=== PATIENT | female | born 1950 | race Caucasian/White ===

== ENCOUNTER 2016-05-11 13:06 | Observation (INO) | payer OTHER ==
--- NOTE | ~2016-05-11 | DS ---
Unit #: [id number] #: [id number] Patient: NIGHAT ABRAHAM [id number] [address] [place], [place] [address] [id number] I MR#: [id number] NAME: NIGHAT ABRAHAM ROOM: 314 Age: 65 Sex: F Admission Date: 05/11/2016 : 1950 Discharge Date: Attending Physician: Marco A Osorio M.D. Primary Care Physician: Eliseo Ross M.D. DISCHARGE SUMMARY ADMITTING DIAGNOSIS Syncope. FURTHER DIAGNOSES 1. Sepsis. 2. Influenzae A pneumonia. 3. Urinary tract infection with cultures negative. 4. Chronic inflammatory demyelinating polyneuropathy. 5. Abnormal echocardiogram with an ejection fraction of 40% to 45% and mild hypokinetic motion of the anterolateral wall. 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 HISTORY OF PRESENTING ILLNESS The patient is a 65-year-old lady with a past medical history of chronic inflammatory demyelinating neuropathy who was on immunoglobulins and currently on azathioprine, who presented to the hospital with a chief complaint of syncope. She complains of cough with production of dark sputum. She also complains of having had diarrhea and burning sensation passing urine. In the hospital course on initial evaluation, she was found to have influenzae A. She was started on Tamiflu. She was also noted to have a urinary tract infection on the urinalysis, started on antimicrobials. Her urine culture came back negative, possibly as she was already receiving antimicrobials. She is doing clinically better. She got an echo done. Echo showed an abnormal wall motion abnormality. Dr. Pandya was consulted. Dr. Pandya recommended an ischemic workup to be done as an outpatient. He recommended that she needs to a Lexiscan Cardiolite stress test but he wants to do it after she recovered from her influenzae. He also recommended an outpatient sleep study. I spoke with Dr. Vargas and he is trying to schedule her for a sleep study. She is doing clinically better. She will be discharged home. On the day of the discharge, her physical examination: ITAL SIGNS - temperature 97.5, pulse rate 70, respiration 18, blood pressure 108/60. The patient is alert, oriented x3, lying in the bed, in no acute distress. HEENT - normocephalic, atraumatic. No icterus. PERRLA. Extraocular muscles intact. NECK is supple. No JVD. HEART - S1, S2. Regular rate and rhythm. CHEST - bilateral equal air entry. Minimal rhonchi. ABDOMEN - soft, nontender. EXTREMITIES - no edema. Normal pulses. Unit #: [id number] #: [id number] Patient: NIGHAT ABRAHAM DISCHARGE MEDICATIONS Include: 1. Tamiflu 75 mg p.o. twice a day for three more days. 2. Omnicef 300 mg p.o. b.i.d. 3. Zofran 4 mg p.o. q.6 hours p.r.n. nausea and vomiting. She will be continuing the rest of the medications includin. Imuran 50 mg p.o. daily. 5. Tessalon 200 mg p.o. twice a day. 6. Norvasc 10 mg daily. 7. Omeprazole 40 mg daily. She was instructed to follow with her primary care in one to two weeks along with Dr. Pandya in two weeks for a Lexiscan Cardiolite stress test and with Dr. Vargas for an outpatient sleep study. Total time spent in her care - 35 minutes. Dictated by... Carie Moffett TD: 05/14/2016 13:42 JOB #: [id number] DISCHARGE SUMMARY X X DISCHARGE SUMMARY
--- NOTE | ~2016-05-11 | EKG ---
PATIENT: NIGHAT ABRAHAM UNIT #: [id number] Ventricular Rate: 73 BPM Atrial Rate: 73 BPM P-R Interval: 134 ms QRS Duration: 80 ms Q-T Interval: 398 ms QTC Calculation(Bezet): 438 ms P Windom: 44 degrees Calculated R Windom: 12 degrees Calculated T Windom: 23 degrees Diagnosis Line: Sinus rhythm with occasional Premature ventricular Diagnosis Line: complexes Diagnosis Line: Otherwise normal ECG Diagnosis Line: When compared with ECG of 11-MAY-2016 12:46, Diagnosis Line: Premature ventricular complexes are now Present Diagnosis Line: Confirmed by MARGIE LION MD ([id number]) on Diagnosis Line: 05/15/2016 8:01:28 AM INTERPRETING MD: AMISHA GEIGER
--- NOTE | ~2016-05-11 | EKG ---
PATIENT: NIGHAT ABRAHAM UNIT #: [id number] Ventricular Rate: 87 BPM Atrial Rate: 87 BPM P-R Interval: 118 ms QRS Duration: 82 ms Q-T Interval: 362 ms QTC Calculation(Bezet): 435 ms P Rio: -8 degrees Calculated R Rio: 28 degrees Calculated T Rio: 35 degrees Diagnosis Line: Normal sinus rhythm Diagnosis Line: Normal ECG Diagnosis Line: No previous ECGs available Diagnosis Line: Confirmed by INA HENDERSON MD ([id number]) on 05/12/2016 Diagnosis Line: 12:05:29 PM INTERPRETING MD: BEATRIZ GEIGER
--- NOTE | ~2016-05-11 | CR72 ---
[facility] A Service of [facility] & [facility] RADIOLOGY TEXT RESULTS PATIENT: NIGHAT ABRAHAM LOCATION: A 314-01 : [birth year] UNIT #: [id number] AGE: [address]: Marco A Osorio MD SEX: F ORDER DR: [id number] [facility] [address] [place], [place] [address] [id number] E MR#: [id number] Acc #: [id number] NAME: NIGHAT ABRAHAM : 1950 SEX: F STUDY DATE/TIME: 05/11/2016 12:44 UNIT: [facility] ROOM: STUDY DESCRIPTION: CR Chest Single View Portable Attending Physician: Bernice Morley M.D. Ordering Physician: Bernice Morley M.D. Primary Care Physician: Eliseo Ross M.D. MEDICAL IMAGING REPORT This report is preliminary unless electronic signature is present EXAM Portable chest. HISTORY 65-year-old female; cough and bronchitis for 2 weeks. COMPARISON STUDIES 01/02/2015 FINDINGS There is linear scarring or atelectasis in the left base. There is no consolidation. The heart size is normal for technique. A left chest port is in place. IMPRESSION No active disease. Dictated by... Memo Jenkins M.D. THIS IS AN ELECTRONICALLY VERIFIED REPORT Memo Jenkins M.D. at 05/15/2016 8:37 AM RENEA/anita TD: 05/11/2016 17:47 JOB #: [id number] MEDICAL IMAGING REPORT COPY
--- NOTE | ~2016-05-11 | CO ---
Unit #: [id number] #: [id number] Patient: NIGHAT ABRAHAM [id number] [facility] [place] [facility]. [place], [place] [address] [id number] I MR#: [id number] NAME: NIGHAT ABRAHAM ROOM: 314 Age: 65 Sex: F Admission Date: 05/11/2016 : 1950 Attending Physician: Marco A Osorio M.D. Primary Care Physician: Eliseo Ross M.D. CONSULTATION REPORT REASON FOR CONSULTATION REQUEST Abnormal echo. HISTORY OF PRESENT ILLNESS Ms. Nighat Abraham is a pleasant 65-year-old female, seen in room 314 at [facility]. She was admitted after an episode of syncope, and she has a history of chronic inflammatory demyelinating polyneuropathy, on IV immunoglobulins until 2 months ago. Her echo was done for evaluation of syncope, and the echo showed ejection fraction of 45% to 50%, and mild anterior and anteroseptal hypokinesis. Otherwise, valves were fine, and the wall motion was fine. The syncopal event occurred after a day of feeling very very poorly. She had a cough come with copious amounts of sputum. She went to the restroom, with dysuria, and dark black stools, and when she came out of the restroom to the living room, she felt nauseous, mild diaphoresis, and then became syncopal. She denies any palpitations or chest pain, or any tachyarrhythmias. She awoke several minutes later, with no residual, and there was no seizure activity noted. Upon presentation to [facility] Emergency Room, her ECG was normal, QT interval was 435 msec. She has had no previous syncope or presyncope. She has no PND, orthopnea, edema, or claudication. She states she sleeps extremely poorly, and awakens frequently. She has a hard time going asleep, awakens frequently, and when she does arise in the morning, she feels like she has not slept at all. PAST MEDICAL HISTORY 1. Hypertension. 2. GERD. 3. Restless legs. 4. Chronic fatigue. 5. Chronic inflammatory demyelinating polyneuropathy. ALLERGIES None. PAST SURGICAL HISTORY 1. Port placement for immunoglobulins. 2. Left elbow surgery. HOME MEDICATIONS Amlodipine 10 mg daily, omeprazole 40 mg daily, Imuran 50 mg daily, Unit #: [id number] #: [id number] Patient: NIGHAT ABRAHAM p.r.n., Angleika p.r.n. SOCIAL HISTORY Denies smoking, alcohol, or illicit drugs, currently on disability. REVIEW OF SYSTEMS As per history of present illness. Otherwise, as stated below. GENERAL: No recent fever or chills. No recent weight change. ENDOCRINE: Negative for thyroid disease. HEENT: No auditory or visual disturbances. GASTROINTESTINAL: No melena, no hematochezia. RESPIRATORY: She notes extreme shortness of breath doing daily activities. She has been told not to exercise much, because of the CIDP. CARDIOVASCULAR: Vide supra. GENITOURINARY: No dysuria. No back pain suggestive of nephrolithiasis. NEUROLOGIC: No seizure disorder, recent CVA, or TIA. PSYCHOLOGICAL: No depression. PHYSICAL EXAMINATION GENERAL: Pleasant, alert, somewhat frustrated, in no acute distress. VITAL SIGNS: Blood pressure 138/84, heart rate is 100 and regular, respiratory rate is 16. SKIN: Warm and dry. No xanthelasma. MUSCULOSKELETAL: No missing digits. Moves easily for evaluation. NEUROLOGICAL: Appropriate mood and affect. Alert and oriented x3. HEENT: Pupils equal, round and reactive. No oral cyanosis. No icterus. NECK: Carotids clear to auscultation with no carotid bruits. Normal carotid upstroke bilaterally. Thyroid is normal in size and texture without masses or tenderness. CHEST: Clear to auscultation with no rales or wheezes. Good effort. CARDIAC: Normal point of maximum impulse. Normal S1 and S2. No S3, S4 or rub. ABDOMEN: No hepatosplenomegaly, masses or tenderness. Normal bowel sounds. No abdominal bruits heard. EXTREMITIES: No clubbing, cyanosis or edema. Excellent posterior tibial and dorsalis pedis pulses. DIAGNOSTIC STUDIES LABORATORY RESULTS: Creatinine is 0.6, potassium 3.8. Total protein 5.8, albumin 2.9. Liver enzymes are normal. TSH was not recently checked. White blood count 6.2, hemoglobin 10.8, platelet count 411,000. Urinalysis shows 2+ leukocyte esterase, and positive nitrites, as well as 2+ protein. CARDIOVASCULAR STUDIES: ECG as above. IMPRESSION 1. Abnormal echo with anteroseptal hypokinesis and EF of 45% to 50%. 2. Syncope: I think this was vagal. 3. High likelihood of sleep apnea. 4. Hypertension. 5. Severe dyspnea on exertion with recent bronchitis, and urinary tract infection. DISCUSSION 1. Complex situation. In terms of the cardiac situation, I would recommend outpatient Lexiscan stress. Currently, she is going through Unit #: [id number] #: [id number] Patient: NIGHAT ABRAHAM bronchitis and UTI treatment. I think we should wait until she improves. 2. I think there is a very high likelihood that she has sleep apnea, contributing to the chronic fatigue. She gives a classic history for this. 3. In terms of dyspnea on exertion, I think this is deconditioning. Whatever, Neurology will let her do in terms of exercise from a cardiac perspective she could do. 4. I think the syncope was a vagal event. I would not do any further workup at this time. She had both bronchitis and UTI, and was very anxious about her situation. I do not think any further workup is necessary at this point. RECOMMENDATIONS 1. Overnight oximetry. 2. Check lipids, TSH, hemoglobin A1c. 3. Check troponin. 4. Outpatient sleep study. 5. We will continue to follow with you. Thank you very much for this consultation. She can be discharged whenever it is appropriate from a primary care standpoint. Dictated by... Carie Hernandez/bucky TD: 05/13/2016 15:22 JOB #: [id number] CONSULTATION REPORT X Nikolai Pandya MD X CONSULTATION REPORT
--- NOTE | ~2016-05-11 | HP ---
Unit #: [id number] #: [id number] Patient: NIGHAT ABRAHAM [id number] [address] [place], [place] [address] [id number] E MR#: [id number] NAME: NIGHAT ABRAHAM ROOM: Age: 65 Sex: F Admission Date: 05/11/2016 : 1950 Attending Physician: Bernice Morley M.D. Primary Care Physician: Eliseo Ross M.D. HISTORY AND PHYSICAL CHIEF COMPLAINT "I passed out." HISTORY OF PRESENT ILLNESS The patient is a 65-year-old lady with a past medical history of chronic inflammatory demyelinating polyneuropathy who was on IV immunoglobulins until two months ago, history of hypertension, who presented to the emergency room through her family, mainly because of passing out at home. Apparently, she was not feeling well for the last one week. Complains of cough with production of copious amounts of sputum. She was told she has bronchitis and given a prescription of antibiotics which she does not recollect. She was taking it and she was not feeling well. This afternoon, she went to the bathroom. She was having a burning sensation passing urine and complains of passing dark black stools and later when she came out of the restroom, she felt lightheaded and passed out for a couple of minutes and later she got into her senses and the family brought her to the emergency room. Denies any chest pain. Denies any palpitations. Denies having any similar episodes in the past. She mentions she did not receive her flu vaccine as she CIDP and was not supposed to receive. She mentions that she follows with Dr. Noel as an outpatient for her CIDP. In the emergency room, she was noted to have a urinary tract infection, positive for influenza, and she is getting admitted for further management. PAST MEDICAL HISTORY 1. Hypertension. 2. History of GERD. 3. Restless leg syndrome. 4. Chronic fatigue syndrome. 5. Chronic inflammatory demyelinating polyneuropathy. ALLERGIES No known drug allergies. PAST SURGICAL HISTORY 1. Port placement. 2. Left elbow fracture surgery. HOME MEDICATIONS She does not recollect, will try to get a list. SOCIAL HISTORY Denies any smoking, alcohol, illicit drugs. Currently on disability. Unit #: [id number] #: [id number] Patient: NIGHAT ABRAHAM FAMILY HISTORY Noncontributory to the current admission. REVIEW OF SYSTEMS Complete review of systems done and negative except for what is mentioned in the HPI. PHYSICAL EXAMINATION VITAL SIGNS: Temperature 97.7, pulse rate 101, respiratory rate 18, blood pressure 138/84. GENERAL: The patient is obese, alert, oriented x3. Lying in the bed in no acute distress. HEENT: Normocephalic and atraumatic. No icterus. PERRLA. Extraocular muscles intact. NECK: Supple. No JVD. HEART: S1, S2. Tachycardia. CHEST: Bilateral equal air entry. Bilateral rhonchi. ABDOMEN: Obese, soft, nontender. EXTREMITIES: No edema. Normal peripheral pulses. DIAGNOSTIC STUDIES LABORATORY: Glucose 109, BUN 15, creatinine 0.7, sodium 141, potassium 3.6, chloride 107, bicarbonate 26. AST 17, ALT 10. WBC 6.2, hemoglobin 12, platelets 469,000. UA shows nitrite positive, 2+ leukocyte esterase. Her influenza swab is positive. ASSESSMENT AND PLAN 1. Syncope, possibly secondary to diarrhea and also due to influenza at this point versus any cardiac etiology. Will admit her. Will start her on IV fluids. Check a 2D echo with Doppler and monitor. 2. Sepsis, secondary due to influenza pneumonia and urinary tract infection. (1) regarding influenza, will keep her in droplet isolation. Will start her on Tamiflu, p.r.n. Tylenol and monitor. 3. Urinary tract infection: Will check urine cultures. Will blood cultures. Will start her on Rocephin. Will review the cultures and de-escalate. 4. Diarrhea: She mentions she was on antimicrobials recently for bronchitis. Will check a stool for Clostridium difficile. Will also check stool for occult blood. Will empirically add Flagyl and monitor. 5. Syncope: Will check a 2D echo with Doppler, serial cardiac enzymes, and monitor. 6. Chronic inflammatory demyelinating polyneuropathy: Clinically stable at this point. No neurological deficits. 7. Deep venous thrombosis precautions: Bilateral sequential compression devices. 8. Further recommendations per hospital course. Dictated by Carie Moffett TD: 05/11/2016 17:15 JOB #: [id number] Unit #: [id number] #: [id number] Patient: NIGHAT ABRAHAM HISTORY AND PHYSICAL X X HISTORY AND PHYSICAL
[~2016-05-11 13:06] MED LIST: ALPRAZOLAM0.5 MG; ALPRAZOLAM0.5 MG PO; AMBIEN PO; AMLODIPINE BESY10 MG PO; AMLODIPINE-BEN1 EACH PO; AZATHIOPRINE50 M1 PO; CELEXA20 MG PO; CLONIDINE TOP; COLACE PO; GAMUNEX INJ; IMURAN50 MG PO; LEVAQUIN PO; LYRICA PO; MEDROL DOSEPAK4 MG PO; MIRAPEX PO; NORVASC PO; NORVASC10 MG PO; OMEPRAZOLE40 M1 PO; PROVIGIL100 MG PO; SOLU-MEDROL1000 MG IV; TEGRETOL PO; TYLENOL325 M1 PO; ZOFRAN ODT4 MG PO
[2016-05-11 13:17] LABS: URINE SOURCE CLEAN CATCH
[2016-05-11 13:21] LABS: POC - CKMB <1.0 ng/mL (0.0-7.9); POC - TROPONIN <0.05 ng/mL (<=0.05)
[2016-05-11 13:23] LABS: URINE APPEARANCE TURBID; URINE BLOOD 3+ (NEG); URINE COLOR RED; URINE GLUCOSE NEG (NEG); URINE KETONE NEG (NEG); URINE LEUKOCYTE ESTERASE 2+ (NEG); URINE NITRATE POS (NEG); URINE PROTEIN 2+ (NEG); URINE SPECIFIC GRAVITY 1.028 (1.003-1.035); URINE UROBILINOGEN 0.2 MG/DL (NEG)
[2016-05-11 13:26] LABS: CULTURE INDICATED? YES; URBCS1 AUWI INNUM /[HPF] (0-2)
[2016-05-11 13:50] LABS: PARTIAL THROMBOPLASTIN TIME 92.4 SECONDS (23.5-31.3); PROTHROMBIN TIME (PATIENT) 10.8 SECONDS (9.6-11.5)
[2016-05-11 13:54] LABS: URINE BILIRUBIN NEG (NEG)
[2016-05-11 13:57] LABS: ALBUMIN SERUM 3.4 g/dL (3.5-5.0); ALKALINE PHOSPHATASE 65 U/L (32-92); ALT (SGPT) 10 U/L (10-40); AST (SGOT) 17 U/L (10-42); BILIRUBIN, DIRECT 0.1 mg/dL (0.0-0.2); BILIRUBIN,INDIRECT 0.5 mg/dL (0.0-0.9); BILIRUBIN,TOTAL 0.6 mg/dL (0.2-2.0); BLOOD UREA NITROGEN 15 mg/dL (9-23); BUN/CREATININE RATIO 21.42; CALCIUM SERUM 8.8 mg/dL (8.4-10.2); CARBON DIOXIDE 26 mmol/L (22-31); CHLORIDE 107 mmol/L (100-111); CREATININE SERUM 0.7 mg/dL (0.6-1.4); GLOM FILT RATE Estimated ABOVE60 mL/min (>60); GLUCOSE FASTING 109 mg/dL (70-110); POTASSIUM 3.6 mmol/L (3.5-5.1); SODIUM 141 mmol/L (135-145)
[2016-05-11 13:58] LABS: URINE SQUAMOUS EPITHELIAL CELL FEW /[HPF]
[2016-05-11 13:59] LABS: BASOPHIL# 0.1 X10e3 (0-0.3); BASOPHIL% 1.4 % (0-2.5); DIFF IND NO; EOSINOPHIL# 0.1 X10e3 (0-0.7); HEMATOCRIT 35.5 % (35.0-45.0); LYMPHOCYTE# 0.4 X10e3 (1.0-3.5); LYMPHOCYTE% 6.4 % (17.0-45.0); MEAN CELL VOLUME 89.2 FL (83-96); MEAN CORPUSCULAR HGB CONC 33.7 g/dL (30-36); MEAN PLATELET VOLUME 6.8 FL (6.5-11.5); MONOCYTE# 0.4 X10e3 (0-1.0); MONOCYTE% 6.5 % (3.0-12.0); NEUTROPHIL# 5.2 X10e3 (1.5-7.1); NEUTROPHIL% 83.7 % (40-75); PLATELET COUNT 469 X10e3 (140-420); RED BLOOD COUNT 3.98 X10e (3.90-5.30); WHITE BLOOD COUNT 6.2 X10e3 (4.0-10.5)
[2016-05-11 13:59] LABS: URINE BACTERIA AUWI 1+ (NEGATIVE)
[2016-05-11 15:48] LABS: INFLUENZA A POS (NEG); INFLUENZA B NEG (NEG)
[2016-05-11 16:37] LABS: POC - CKMB <1.0 ng/mL (0.0-7.9); POC - TROPONIN <0.05 ng/mL (<=0.05)
[2016-05-11] MEDS ORDERED: IMURAN50 MG PO (17:37)
[2016-05-11] MEDS ORDERED: OMEPRAZOLE40 M1 PO (17:37)
[2016-05-11] MEDS ORDERED: AMLODIPINE BESY10 MG PO (17:37)
[2016-05-11] MEDS ORDERED: TESSALON PERLE100 M1 PO (17:38)
[2016-05-11] MEDS ORDERED: AUGMENTIN875 M1 PO (17:38)
[2016-05-11 23:23] LABS: CK TOTAL 46 IU/L (26-140)
[2016-05-12 04:31] LABS: BASOPHIL# 0.1 X10e3 (0-0.3); BASOPHIL% 1.2 % (0-2.5); DIFF IND NO; EOSINOPHIL# 0.3 X10e3 (0-0.7); EOSINOPHIL% 5.4 % (0.0-7.0); HEMATOCRIT 31.9 % (35.0-45.0); HEMOGLOBIN 10.7 gm/dL (12.0-16.0); LYMPHOCYTE# 0.8 X10e3 (1.0-3.5); LYMPHOCYTE% 12.5 % (17.0-45.0); MEAN CELL VOLUME 91.3 FL (83-96); MEAN CORPUSCULAR HEMOGLOBIN 30.6 PG (28-34); MEAN CORPUSCULAR HGB CONC 33.6 g/dL (30-36); MEAN PLATELET VOLUME 6.6 FL (6.5-11.5); MONOCYTE# 0.4 X10e3 (0-1.0); MONOCYTE% 7.2 % (3.0-12.0); NEUTROPHIL# 4.4 X10e3 (1.5-7.1); NEUTROPHIL% 73.7 % (40-75); PLATELET COUNT 410 X10e3 (140-420); RED BLOOD COUNT 3.49 X10e (3.90-5.30); RED CELL DISTRIBUTION WIDTH 15.2 % (11.0-15.5)
[2016-05-12 04:51] LABS: CK TOTAL 52 IU/L (26-140)
[2016-05-12 04:55] LABS: ALBUMIN SERUM 2.9 g/dL (3.5-5.0); ALKALINE PHOSPHATASE 61 U/L (32-92); ALT (SGPT) 9 U/L (10-40); AST (SGOT) 15 U/L (10-42); BILIRUBIN,TOTAL 0.5 mg/dL (0.2-2.0); BLOOD UREA NITROGEN 9 mg/dL (9-23); BUN/CREATININE RATIO 12.85; CALCIUM SERUM 8.5 mg/dL (8.4-10.2); CARBON DIOXIDE 25 mmol/L (22-31); CHLORIDE 108 mmol/L (100-111); CREATININE SERUM 0.7 mg/dL (0.6-1.4); GLOM FILT RATE Estimated ABOVE60 mL/min (>60); GLUCOSE FASTING 103 mg/dL (70-110); POTASSIUM 3.6 mmol/L (3.5-5.1); PROTEIN TOTAL SERUM 5.8 g/dL (6.0-8.3); SODIUM 138 mmol/L (135-145)
[2016-05-13 06:27] LABS: HEMATOCRIT 30.3 % (35.0-45.0); HEMOGLOBIN 10.8 gm/dL (12.0-16.0); MEAN CELL VOLUME 97.9 FL (83-96); MEAN CORPUSCULAR HEMOGLOBIN 34.8 PG (28-34); MEAN CORPUSCULAR HGB CONC 35.5 g/dL (30-36); MEAN PLATELET VOLUME 6.7 FL (6.5-11.5); RED BLOOD COUNT 3.09 X10e (3.90-5.30); RED CELL DISTRIBUTION WIDTH 14.9 % (11.0-15.5); WHITE BLOOD COUNT 6.2 X10e3 (4.0-10.5)
[2016-05-13 07:54] LABS: BLOOD UREA NITROGEN 7 mg/dL (9-23); BUN/CREATININE RATIO 11.66; CALCIUM SERUM 8.3 mg/dL (8.4-10.2); CARBON DIOXIDE 26 mmol/L (22-31); CHLORIDE 109 mmol/L (100-111); CREATININE SERUM 0.6 mg/dL (0.6-1.4); GLOM FILT RATE Estimated ABOVE60 mL/min (>60); GLUCOSE FASTING 101 mg/dL (70-110); POTASSIUM 3.8 mmol/L (3.5-5.1); SODIUM 139 mmol/L (135-145)
[2016-05-14 06:01] LABS: HEMATOCRIT 31.5 % (35.0-45.0); HEMOGLOBIN 10.6 gm/dL (12.0-16.0); MEAN CORPUSCULAR HEMOGLOBIN 30.9 PG (28-34); MEAN CORPUSCULAR HGB CONC 33.7 g/dL (30-36); RED BLOOD COUNT 3.44 X10e (3.90-5.30); RED CELL DISTRIBUTION WIDTH 15.3 % (11.0-15.5); WHITE BLOOD COUNT 6.8 X10e3 (4.0-10.5)
[2016-05-14 06:05] LABS: MEAN CELL VOLUME 91.5 FL (83-96)
[2016-05-14 06:44] LABS: BLOOD UREA NITROGEN 10 mg/dL (9-23); BUN/CREATININE RATIO 16.66; CALCIUM SERUM 8.5 mg/dL (8.4-10.2); CARBON DIOXIDE 28 mmol/L (22-31); CHLORIDE 106 mmol/L (100-111); CREATININE SERUM 0.6 mg/dL (0.6-1.4); GLOM FILT RATE Estimated ABOVE60 mL/min (>60); GLUCOSE FASTING 98 mg/dL (70-110); POTASSIUM 3.9 mmol/L (3.5-5.1); SODIUM 140 mmol/L (135-145)
[2016-05-14 06:53] LABS: CHOLESTEROL 101 mg/dL (0-200); HDL CHOLESTEROL 48 mg/dL (35-95); LDL CHOLESTEROL 46 mg/dL (-130); LDL/HDL RATIO 1 RATIO (0-4); TRIGLYCERIDES 36 mg/dL (10-160)
[2016-05-15] MEDS ORDERED: TAMIFLU75 M1 PO (09:21)
[2016-05-15] MEDS ORDERED: OMNICEF300 MG PO (09:22)
[2016-05-15] MEDS ORDERED: ZOFRAN PO (09:22)
== END 2016-05-15 10:50 | DRG 871 ==
LOC: CED 13:06 → CEDOF 16:30 → C3A PCU 19:56
PROVIDERS: Emergency Medicine; Internal Medicine
DX: A41.89 Other specified sepsis (principal); J10.01 Influenza due to other identified influenza virus with the same other identified influenza virus pneumonia; R55 Syncope and collapse; N39.0 Urinary tract infection, site not specified; G61.81 Chronic inflammatory demyelinating polyneuritis; I08.8 Other rheumatic multiple valve diseases; I10 Essential (primary) hypertension; R19.7 Diarrhea, unspecified; R53.82 Chronic fatigue, unspecified; K21.9 Gastro-esophageal reflux disease without esophagitis; R93.1 Abnormal findings on diagnostic imaging of heart and coronary circulation
CPT/HCPCS: 36415; 71010; 80048; 80053; 80061; 80076; 81003; 82550; 82553; 82947; 83036; 83605; 83880; 84443; 84484; 85025; 85027; 85610; 85730; 87040; 87070; 87086; 87205; 87493; 87804; 93005; 93306; 94760; 96361; 96365; 96366; 96375; 96376; 99285; G0378; J0696; J1642; J2405

== ENCOUNTER → 2016-06-13 | Outpatient (CLI) | payer OTHER ==
[~2016-06-13] MED LIST changes: +AUGMENTIN875 M1 PO; +OMNICEF300 MG PO; +TAMIFLU75 M1 PO; +TESSALON PERLE100 M1 PO; +ZOFRAN PO
--- NOTE | ~2016-06-13 | CT57 ---
[facility] A Service of [facility] & [facility] RADIOLOGY TEXT RESULTS PATIENT: NIGHAT ABRAHAM LOCATION: [facility] : 52 UNIT #: [id number] AGE: [address]: Mary Sarmiento SEX: F ORDER DR: [id number] [facility] [address] [place], [place] [address] [id number] O MR#: [id number] Acc #: [id number] NAME: NIGHAT ABRAHAM : 1950 SEX: F STUDY DATE/TIME: 06/13/2016 9:42 UNIT: [facility] ROOM: STUDY DESCRIPTION: CT Chest Wo Cont Attending Physician: Mary Sarmiento A.P.R.N. Referring Physician: Mary Sarmiento A.P.R.N. Ordering Physician: Mary Sarmiento A.P.R.N. Primary Care Physician: Eliseo Ross M.D. MEDICAL IMAGING REPORT This report is preliminary unless electronic signature is present EXAM CT chest without contrast INDICATIONS Cough, fatigue, hypoxia. TECHNIQUE This CT exam was performed with one or more of the following radiation dose reduction techniques: automatic exposure control, adjustment of mA and/or kV according to patient size, and iterative reconstruction. CT of the thorax without contrast. Coronal and sagittal reconstructions were obtained. COMPARISON Chest dated 01/10/2015. FINDINGS The lungs are clear. No focal consolidation. Central airways are patent. No pathologically enlarged mediastinal or hilar lymph nodes. There is no pericardial or pleural effusion. Thoracic aorta is normal in caliber. There are 2 abnormal left axillary lymph nodes measuring 1.6 x 1.4 and 2 x 1.6 cm. There are a few smaller lymph nodes which are borderline enlarged. Patient has a large left shoulder effusion. There is a left chest wall port. IMPRESSION 1. No new findings in the chest. 2. Abnormal left axillary lymph nodes are unchanged from the 01/10/2015 exam. Given the stability, these are likely benign. Consider additional followup in January 15, 2017, to confirm 2 years of [facility] A Service of [facility] & [facility] RADIOLOGY TEXT RESULTS PATIENT: NIGHAT ABARHAM LOCATION: [facility] : [birth year] UNIT #: [id number] AGE: [address]: Mary Sarmiento SEX: F ORDER DR: cale. Dictated by... Jamarcus London M.D. THIS IS AN ELECTRONICALLY VERIFIED REPORT Jamarcus London M.D. at 06/13/2016 4:25 PM ADOLFO/george TD: 06/13/2016 14:25 JOB #: [id number] MEDICAL IMAGING REPORT Page 1 of 1 COPY
--- NOTE | ~2016-06-13 | PFT ---
[id number] [facility] [address] [place], [place] [address] [id number] O MR#: [id number] NAME: NIGHAT ABRAHAM ROOM: SEX: F STUDY DATE/TIME: 06/16/2016 : 1950 AGE: 65 STUDY DESCRIPTION: Attending Physician: Mary Sarmiento A.P.R.N. Referring Physician: Mary Sarmiento A.P.R.N. Primary Care Physician: Eliseo Ross M.D. PULMONARY DIAGNOSTIC REPORT EXAM Pulmonary Function Study FINDINGS Test meets ATS criteria for acceptability and repeatability. Chronic coughing made maneuvers difficult to perform. Therefore, please regard the results of this PFT with some caution. Spirometry shows no significant obstruction. Flow volume loops shows mild small airway disease. There is non-significant bronchodilator response. Lung volumes are low normal. Diffusion capacity is mildly decreased, corrects for alveolar ventilation. This is consistent with mild obstructive lung disease such as asthma or COPD. Dictated by... Carie Ferris TD: 06/16/2016 18:58 JOB #: [id number] PULMONARY DIAGNOSTIC REPORT Page 1 of 1
== END | disposition home or self-care (01) ==
LOC: CCAT 09:03
DX: R05 Cough (principal); R53.83 Other fatigue; R09.02 Hypoxemia; G47.34 Idiopathic sleep related nonobstructive alveolar hypoventilation; R94.8 Abnormal results of function studies of other organs and systems
CPT/HCPCS: 71250; 94060; 94726; 94729